=== PATIENT | female | born 1980 | race Hispanic/Latino ===

== ENCOUNTER 2017-07-21 12:28 | Emergency (ER) | payer SELFPAY ==
--- NOTE | 2017-07-21 12:46 | ED.PDOC ---
History of Present Illness - General Chief Complaint: Abdominal Pain Stated Complaint: abdominal pain Time Seen by Provider: 07/21/17 12:45 Information Source: patient Exam Limitations: no limitations - History of Present Illness Initial Comments: Julia Rodriguez 37 y/o female stated her right lower ribcage hurts whenever she coughs for the last 2 days .Stated had non productive cough ,no sob,no fever/ chills.Had hospitalization in the past for kidney infection right and drain tube placed in [facility].Had also been diagnosed with diabetes and was placed on insulin but could not afford medicine. Abdominal Pain Onset Location: RUQ Pain Radiation: no radiation Quality: dull, intermittent Timing/Duration: other - 2 dqays Improving Factors: nothing Worsening Factors: other - coughing Associated Symptoms: other - see hpi Review of Systems - Review of Systems Constitutional: States: no symptoms reported EENTM: States: no symptoms reported Respiratory: States: see HPI, cough Cardiology: States: no symptoms reported All other Systems: Reviewed and Negative, No Change from Baseline Past Medical History (General) - Patient Medical History Hx Seizures: No Hx Stroke: No Hx Dementia: No Hx Asthma: No Hx of COPD: No Hx Cardiac Disorders: No Hx Congestive Heart Failure: No Hx Pacemaker: No Hx Hypertension: No Hx Thyroid Disease: No Hx Diabetes: Yes Hx Gastroesophageal Reflux: No Hx Renal Disease: No Hx Cancer: No Hx of HIV: No Hx Hepatitis C: No Hx MRSA: No Surgical History: other - drain tube right kidney abscess - Vaccination History Hx Tetanus, Diphtheria Vaccination: No Hx Influenza Vaccination: No Hx Pneumococcal Vaccination: No - Social History Hx Tobacco Use: No Hx Chewing Tobacco Use: No Hx Alcohol Use: No Hx Substance Use: Yes Hx Substance Use Treatment: No Hx Depression: No Hx Physical Abuse: No Hx Emotional Abuse: No - Female History Hx Last Menstrual Period: 07/21/17 Patient : No - unknown Family Medical History - Family History Paternal Grandparents Hx Family Hypertension: Yes - paternal grandmother Hx Family Diabetes: Yes - paternal grandmother Paternal Hx Family;Other: Paternal aunts have high blood pressure and diabetes Sister Maternal Hx Family Cancer: Yes - Pt sister has cervical cancer Mother Family History: Unknown Living Status: Hx Family Cancer: Yes Hx Family;Other: Pt states mother had leukemia Physical Exam - Physical Exam General Appearance: Alert, Comfortable, No apparent distress Eyes, Ears, Nose, Throat Exam: normal ENT inspection, pharynx normal Neck: non-tender, full range of motion, supple Respiratory: chest non-tender, no respiratory distress, wheezing - mild Cardiovascular/Chest: normal peripheral pulses, regular rate, rhythm, no murmur Peripheral Pulses: No deficit Gastrointestinal/Abdominal: normal bowel sounds, non tender, soft Back Exam: normal inspection, no CVA tenderness Extremity: normal range of motion, non-tender Neurologic: alert, oriented x 3 Skin Exam: normal color, warm/dry Progress - Progress Progress: 07/21/17 12:59 Vital Signs 07/21/17 12:34 Temperature 96.4 F L Pulse Rate [ 102 H pulse ox] Respiratory 20 Rate Blood Pressure 128/83 [Left Arm] O2 Sat by Pulse 97 Oximetry - Results/Orders Results/Orders: 07/21/17 13:05 URINE CULTURE W/COLONY COUNT Stat 07/21/17 13:09 LACTIC ACID Stat Laboratory Results - last 24 hr 07/21/17 07/21/17 07/21/17 13:05 13:05 13:09 WBC 10.3 RBC 4.81 Hgb 13.8 Hct 40.6 MCV 84.3 MCH 28.7 MCHC 34.1 RDW 13.8 Plt Count 398 MPV 7.2 L Absolute Neuts (auto) 8.10 H Absolute Lymphs (auto) 1.40 Absolute Monos (auto) 0.50 Absolute Eos (auto) 0.20 Absolute Basos (auto) 0.10 Neutrophils % 79.1 H Lymphocytes % 13.5 L Monocytes % 4.7 Eosinophils % 2.0 Basophils % 0.7 Sodium Potassium Chloride Carbon Dioxide Anion Gap BUN Creatinine BUN/Creatinine Ratio Random Glucose Serum Osmolality Calcium Total Bilirubin AST ALT Alkaline Phosphatase Serum Total Protein Albumin Globulin Albumin/Globulin Ratio Urine Color Yellow Urine Appearance Cloudy Urine pH 6.0 Ur Specific Dutton 1.020 Urine Protein 100 H Urine Glucose (UA) Negative Urine Ketones Negative Urine Blood Large H Urine Nitrite Negative Urine Bilirubin Negative Urine Urobilinogen 0.2 Ur Leukocyte Esterase Large H Urine RBC Obscured by wbc's H Urine WBC Tntc H Ur Epithelial Cells 0 Urine Bacteria Obscured by wbc's H Urine HCG, Qual Negative 07/21/17 13:09 WBC RBC Hgb Hct MCV MCH MCHC RDW Plt Count MPV Absolute Neuts (auto) Absolute Lymphs (auto) Absolute Monos (auto) Absolute Eos (auto) Absolute Basos (auto) Neutrophils % Lymphocytes % Monocytes % Eosinophils % Basophils % Sodium 134 L Potassium 3.8 Chloride 97 L Carbon Dioxide 29 Anion Gap 11.8 L BUN 10 Creatinine 0.63 BUN/Creatinine Ratio 15.9 Random Glucose 266 H Serum Osmolality 276.6 Calcium 9.0 Total Bilirubin 0.3 AST 13 ALT 19 Alkaline Phosphatase 108 Serum Total Protein 8.2 Albumin 3.6 Globulin 4.6 H Albumin/Globulin Ratio 0.8 L Urine Color Urine Appearance Urine pH Ur Specific Dutton Urine Protein Urine Glucose (UA) Urine Ketones Urine Blood Urine Nitrite Urine Bilirubin Urine Urobilinogen Ur Leukocyte Esterase Urine RBC Urine WBC Ur Epithelial Cells Urine Bacteria Urine HCG, Qual - EKG/XRAY/CT XRAY: chest - no acute chest process/radiologis Departure - Departure Clinical Impression: Right upper quadrant abdominal pain URI (upper respiratory infection) Qualifiers: URI type: unspecified URI Qualified Code(s): J06.9 - Acute upper respiratory infection, unspecified Diabetes Qualifiers: Diabetes mellitus type: type 2 Diabetes mellitus complication status: without complication 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 Copy, Patient Portal Self Enrollment Instructions: Type 2 Diabetes, DI for Diabetes Type 2, Diet Soda Intake Linked to Increase Risk of Type 2 Diabetes, What to Eat if You Have Diabetes, DI for Urinary Tract Infection (UTI), Bladder Infection (Alternative Therapy) Prescriptions: Ciprofloxacin [Cipro] 250 mg PO Q12H 10 Days #20 tablet Metformin HCl 1,000 mg PO BID #60 tab Home Medications: Ambulatory Orders Vit W/ Ferrous Fumara [] 1 tab PO DAILY #30 tab 11/09/13 Nitrofurantoin Monohydrate Mac [Macrobid] 100 mg PO BID #20 cap 04/16/14 Tylenol 1 - 2 ea PO PRN PRN 04/16/14 Ferrous Sulfate [Feosol Tab] 325 mg PO QD #100 tab 04/18/14 Ibuprofen [Motrin Tab] 600 mg PO Q8H #20 tab 04/18/14 Vit W/ Ferrous Fumara [Vitafol-Ob] 1 tab PO DAILY #100 tab 04/18/14 Ciprofloxacin [Cipro] 250 mg PO Q12H 10 Days #20 tablet 07/21/17 Metformin HCl 1,000 mg PO BID #60 tab 07/21/17 Additional Instructions: Need to sign up with [facility]-Clinic to establish with primary MD for follow up [phone]/ [phone]
[2017-07-21] MEDS ORDERED: IPRATROPIUM/ALBUTEROL 3 ML VIAL NEB ONE (13:00)
[2017-07-21 13:07] VITALS: TEMP 96.4
[2017-07-21] MEDS ORDERED: MEROPENEM 1 GM in SODIUM CHL 0.9% 50ML MIN-BAG+ 50 ML IVPB ONE (13:39)
[2017-07-21] MEDS ORDERED: INSULIN, REG.(HUMAN) 100 U/ML VIAL SUBCU ONE (13:40)
[2017-07-21] MEDS ORDERED: SODIUM CHL 0.9% 50ML MIN-BAG+ 50 ML IVPB ONE (13:56)
[2017-07-21] MEDS ORDERED: MEROPENEM 1 GM VIAL IVPB ONE (13:57)
--- NOTE | 2017-07-21 14:01 | RAD ---
2 view chest INDICATION: Cough IMPRESSION: Normal heart size. Lungs are clear. No focal infiltrate. No acute chest process Electronically signed by: Kaushik Vega MD 07/21/2017 2:00 PM CDT
[2017-07-21 14:54] VITALS: BP 101/75; O2SAT 100
== END 2017-07-21 14:48 | disposition home or self-care (01) ==
LOC: ER 12:28
DX: J06.9 Acute upper respiratory infection, unspecified (principal); R10.11 Right upper quadrant pain; N39.0 Urinary tract infection, site not specified; E11.9 Type 2 diabetes mellitus without complications
CPT/HCPCS: 36415; 71046; 80053; 81001; 81025; 83605; 85025; 87086; 94640; J2185; J7050; J7620

== ENCOUNTER 2018-01-25 12:31 | Emergency (ER) | payer SELFPAY ==
[2018-01-25 12:51] VITALS: BP 116/57; TEMP 98.1
[2018-01-25] MEDS ORDERED: HYDROcodone 10MG/APAP 325MG 1 EA TAB PO ONE (13:04)
[2018-01-25] MEDS ORDERED: KETOROLAC TROMETHAMINE INJ 60 MG/2 ML VIAL IM ONE (13:04)
--- NOTE | 2018-01-25 13:07 | ED.PDOC ---
History of Present Illness - General Chief Complaint: Lower Extremity Injury Stated Complaint: right ankle injury Time Seen by Provider: 01/25/18 12:42 Source: patient Exam Limitations: no limitations - History of Present Illness Initial Comments: PT PRESENTS TO THE ED WITH COMPLAINT OF RIGHT ANKLE PAIN S/P FALL WHILE AT HOME. PT REPORTS BEING UNABLE TO BEAR WEIGHT ON ANKLE DUE TO PAIN. Occurred: just prior to arrival Pain - Lower Extremity: severe: Right Ankle Method of Injury: fell Improving Factors: immobilization Worsening Factors: movement Allergies/Adverse Reactions: Allergies NO KNOWN ALLERGY Allergy (Verified 07/21/17 12:46) Home Medications: Ambulatory Orders Acetaminophen W/ Codeine [Tylenol W/ CODEINE #3] 1 ea PO Q4HR PRN #24 01/25/18 Ibuprofen 800 mg PO Q8HR PRN #30 tab 01/25/18 Review of Systems - Review of Systems Constitutional: Denies: chills, fever Respiratory: Denies: cough, short of breath Cardiology: Denies: chest pain, palpitations Gastrointestinal/Abdominal: Denies: nausea, vomiting Musculoskeletal: States: joint pain, joint swelling Past Medical History (General) - Patient Medical History Hx Seizures: No Hx Stroke: No Hx Dementia: No Hx Asthma: No Hx of COPD: No Hx Cardiac Disorders: No Hx Congestive Heart Failure: No Hx Pacemaker: No Hx Hypertension: No Hx Thyroid Disease: No Hx Diabetes: Yes Hx Gastroesophageal Reflux: No Hx Renal Disease: No Hx Cancer: No Hx of HIV: No Hx Hepatitis C: No Hx MRSA: No Surgical History: no surgical history - Vaccination History Hx Tetanus, Diphtheria Vaccination: No Hx Influenza Vaccination: No Hx Pneumococcal Vaccination: No - Social History Hx Tobacco Use: No Hx Chewing Tobacco Use: No Hx Alcohol Use: No Hx Substance Use: Yes Hx Substance Use Treatment: No Hx Depression: No Hx Physical Abuse: No Hx Emotional Abuse: No - Female History Hx Last Menstrual Period: 07/21/17 Patient : No - unknown Expected Date of Delivery:: 05/27/14 Family Medical History - Family History Paternal Grandparents Hx Family Hypertension: Yes - paternal grandmother Hx Family Diabetes: Yes - paternal grandmother Paternal Hx Family;Other: Paternal aunts have high blood pressure and diabetes Sister Maternal Hx Family Cancer: Yes - Pt sister has cervical cancer Mother Family History: Unknown Living Status: Hx Family Cancer: Yes Hx Family;Other: Pt states mother had leukemia Physical Exam - Physical Exam General Appearance: Alert, Obvious distress, Well Developed, Well Groomed, Well Hydrated Thigh/Hip: normal inspection, non-tender, no evidence of injury Leg: normal inspection, non-tender, no evidence of injury Knee: normal inspection, non-tender, no evidence of injury Ankle: limited ROM, soft tissue tenderness - DIFFUSE, swelling - MODERATE TO SEVERE, NO TENTING Foot: normal inspection, non-tender, no evidence of injury Neuro/Tendon: normal sensation, normal motor functions Mental Status: alert, oriented x 3 Skin: normal color, warm/dry Progress - EKG/XRAY/CT XRAY: ankle - posteriorly displaced trimalleolar fx as per rad - Consult/PCP Time Called: 13:52 Consult/PCP: DR. CAZARES (ORTHOPEDICS) Consult Reason/Comments: CASE AND XRAY FINDINGS DISCUSSED. RECOMMENDS OUTPT F/ U. AT BEDSIDE. - Additional EKG/XRAY/Consults XRAY #2: ankle - NO INTERVAL CHANGE IN DISPLACEMENT OF TRIMALLEOLAR FX Procedures - Splinting Right Ankle Hand-Made Type: orthoglass Splint: sugar-tong Pre-Proc Neuro Vasc Exam: normal Post-Proc Neuro Vasc Exam: unchanged from pre-exam Progress: TOLERATED WELL Departure - Departure Clinical Impression: Trimalleolar fracture of right ankle Qualifiers: Encounter type: initial encounter Fracture type: closed Qualified Code(s): S82.851A - Displaced trimalleolar fracture of right lower leg, initial encounter for closed fracture Disposition: Discharge to Home or Self Care Condition: Fair Departure Forms: ED Discharge - Pt. Copy, Patient Portal Self Enrollment Instructions: Ankle Fracture (DC) Referrals: Link Cazares MD [Active Staff] - 1-2 Days Prescriptions: Acetaminophen W/ Codeine [Tylenol W/ CODEINE #3] 1 ea PO Q4HR PRN #24 PRN Reason: Pain Ibuprofen 800 mg PO Q8HR PRN #30 tab PRN Reason: Pain Home Medications: Ambulatory Orders Acetaminophen W/ Codeine [Tylenol W/ CODEINE #3] 1 ea PO Q4HR PRN #24 01/25/18 Ibuprofen 800 mg PO Q8HR PRN #30 tab 01/25/18
--- NOTE | 2018-01-25 13:25 | RAD ---
EXAM DESCRIPTION: Ankle,Right 3 Views CLINICAL HISTORY: 37 years Female, fall COMPARISON: None. TECHNIQUE: AP lateral and oblique right ankle. FINDINGS: Displaced fracture of the medial malleolus with medial shift of the tibia on the talus and widening of the medial gutter. Compression of the lateral gutter. Spiral fracture of the distal fibula with inferior fracture line at the level of the horizontal ankle mortise. Small fragment abutting the fibular fracture. Bone density inferior to the lateral malleolus does not appear acute. Posterior displaced tibial fracture. Subtalar joints are unremarkable. Hindfoot and tarsals appear grossly intact. IMPRESSION: Trimalleolar fracture of the right ankle with medial displacement of the tibia on the talus, widening of the medial gutter, and flattening of the lateral gutter. Small fracture fragment abutting the fibular fracture. Electronically signed by: Freddy Grant MD 01/25/2018 1:23 PM [facility]
--- NOTE | 2018-01-25 14:22 | RAD ---
EXAM DESCRIPTION: Ankle,Right 2 Views CLINICAL HISTORY: post reduction COMPARISON: January 25, 2018 at 1256 hours. IMPRESSION: 2 views of the right ankle again demonstrate trimalleolar fracture without significant change in positioning of the fracture fragments. There may be slightly more posterior displacement of the distal fracture fragment of the fibula fibula although the lateral projection is slightly oblique. There remains moderate widening of the medial ankle mortise similar to previous. Diffuse soft tissue swelling of the ankle is again seen. Electronically signed by: Armen He MD 01/25/2018 2:20 PM [facility]
[2018-01-25 15:02] VITALS: O2SAT 98
== END 2018-01-25 15:04 | disposition home or self-care (01) ==
LOC: ER 12:31
DX: S82.851A Displaced trimalleolar fracture of right lower leg, initial encounter for closed fracture (principal); E11.9 Type 2 diabetes mellitus without complications; W18.39XA Other fall on same level, initial encounter; Y92.000 Kitchen of unspecified non-institutional (private) residence as the place of occurrence of the external cause
CPT/HCPCS: 73600; 73610; J1885

== ENCOUNTER → 2018-02-01 | Outpatient (CLI) | payer SELFPAY ==
--- NOTE | 2018-02-02 10:12 | RAD ---
Procedure: XR RIGHT ANKLE 3 OR MORE VIEWS Exam Date: 02/01/2018 Ordering Provider: KAMRON WATSON Clinical Indication: CLOSED FX Comparison: 01/25/2018 Findings/impression: Fine bony details obscured by the overlying cast material. There is redemonstration of trimalleolar fracture with widening of the medial clear space which is increased compared to prior. Talar tilt also appears increased compared to prior. The fracture of the distal fibula is more displaced compared to prior with approximately one shaft width medial displacement of the proximal fibula. Diffuse soft tissue swelling. Electronically signed by: Yuri Gagnon MD 02/02/2018 10:10 AM [facility]
--- NOTE | 2018-02-02 10:12 | RAD ---
EXAM DESCRIPTION: Ankle,Right 3 Views CLINICAL HISTORY: 37 years, Female, FX COMPARISON: Previous study February 01, 2018 TECHNIQUE: AP/lateral/oblique of the right ankle FINDINGS: Medial malleolar avulsion fracture remains markedly displaced. A small fragment seen between the larger fragment in the donor site. Fragment is displaced laterally approximately 1.2 cm. Oblique fracture through the lateral malleolus is present extending into the ankle joint. There is approximately 1.2 cm lateral displacement of the major distal fracture fragment. Lateral view shows posterior displacement which appears less severe than on the previous study. This may be a preop film prior to internal fixation. Clinical correlation recommended. Talar dome is displaced laterally approximately 1.4 cm. IMPRESSION: Right ankle fracture dislocation as described. Electronically signed by: Lalito Robison MD 02/02/2018 10:11 AM [facility]
--- NOTE | 2018-02-02 10:15 | RAD ---
EXAM DESCRIPTION: Ankle,Right 3 Views CLINICAL HISTORY: 37 years, Female, FX,POST REDUCTION COMPARISON: None. TECHNIQUE: AP/lateral/oblique of the right ankle FINDINGS: Additional images are obtained labeled post reduction. Reduced degree of displacement of the medial and lateral malleolar fractures is seen. The gap at the medial malleolar fracture site is approximately 4 mm. The gap of the lateral malleolar fracture is approximately 2 mm on the AP view and 2.5 mm on the lateral view. An additional posterior malleolar fracture fragment is questioned on the lateral view not seen on previous studies. Talar dome appears normally situated relative to the distal tibial plafond. IMPRESSION: Reduced degree of displacement. Electronically signed by: Lalito Robison MD 02/02/2018 10:13 AM [facility]
== END ==
LOC: RAD 07:56
PROVIDERS: ATTEND Orthopaedic Surgery
DX: S82.91XD Unspecified fracture of right lower leg, subsequent encounter for closed fracture with routine healing (principal)

== ENCOUNTER → 2018-02-11 | Outpatient (CLI) | payer SELFPAY ==
--- NOTE | 2018-02-11 08:48 | RAD ---
EXAM DESCRIPTION: Ankle,Right 3 Views CLINICAL HISTORY: 37 years, Female, TRIMALLEOLAR FRACTURE RIGHT COMPARISON: February 01, 2018 TECHNIQUE: AP/lateral/oblique of the ankle FINDINGS: An encircling fiberglass cast surrounds the ankle. An oblique fracture of the distal fibula at and just above the ankle mortise with slight lateral displacement and a slightly distracted laterally displaced displaced fracture of the medial malleolus is evident. Widening of the ankle mortise particularly medially is noted on the AP view and oblique view. Lateral view demonstrates a minimally displaced posterior malleolar fracture as well. IMPRESSION: 1. Trimalleolar fracture of the ankle mortise with approximately 3 to 4 mm of lateral displacement of the distal fibula and the medial malleolar fragment with modest widening of the ankle mortise, unchanged from reduction views obtained with encircling fiberglass cast on previous examination. 2. Mildly displaced posterior malleolar fracture is unchanged on the lateral projection. Electronically signed by: Beau Plata MD 02/11/2018 8:46 AM [facility]
== END ==
LOC: RAD 07:59
PROVIDERS: ATTEND Orthopaedic Surgery
DX: S82.851D Displaced trimalleolar fracture of right lower leg, subsequent encounter for closed fracture with routine healing (principal)

== ENCOUNTER → 2018-02-22 | Outpatient (CLI) | payer SELFPAY ==
--- NOTE | 2018-02-21 10:21 | HP ---
CHIEF COMPLAINT: Ankle pain. HISTORY OF PRESENT ILLNESS: Julia is a patient that we have been seeing for about 2 weeks for an ankle fracture. Her fracture was a bimalleolar fracture in nature and would best be served by surgical intervention. My office has gone to great lengths to assist her with obtaining financial assistance in order to proceed with surgery, however she has not done what is needed despite explicit instructions. She has missed or been late for at least 7 appointments in clinic, inclusive of the very initial follow-up from the ER. She admittedly does not answer her phone. Finally, she has and has received approval so we can proceed with fixation of her ankle. After discussing the risks, benefits and alternatives to the patient has given informed consent. PAST SURGICAL HISTORY: None. MEDICATIONS: 1. Ibuprofen. 2. Tylenol with codeine. 3. Antibiotic for a urinary tract infection. ALLERGIES: NO KNOWN DRUG ALLERGIES. CODE STATUS: Full code. IMMUNIZATIONS: Up to date. FAMILY HISTORY: None pertinent to today's complaint. SOCIAL HISTORY: The patient does not drink alcohol, smoke or use any illicit drugs. REVIEW OF SYSTEMS: Negative except as indicated in the History of Present Illness. PHYSICAL EXAMINATION: VITAL SIGNS: Blood pressure 152/65. Pulse 82. Height 5'6". Weight 155 pounds. MENTAL STATUS: The patient is awake, alert, and is able to give a good history and participate in the physical. The patient is oriented to person, place and time. SKIN: Normal tone and turgor. MUSCULOSKELETAL: She has some swelling today, but does have skin that appears to be operable. She does have an ulcer from her fracture blister on the anteromedial aspect that is superficial and clean and doesn't have drainage or erythema. She has intact sensation and the extremity is warm and well perfused and there is not any gross malalignment. IMAGING: X-rays show displaced bimalleolar ankle fracture. ASSESSMENT: 1. Ankle fracture. PLAN: The plan at this point is open reduction and internal fixation. We have discussed the risks, benefits, and alternatives to that and the patient has given informed consent. #[id number] [facility]
[~2018-02-22] MED LIST: LACTATED RINGERS 1,000 ML ONE; SODIUM CHL 0.9% 100ML MINI-BAG 100 ML IVPB ONE; ceFAZolin SODIUM 1 GM VIAL ONE
== END ==
LOC: AMB 05:44 → EDSTATUS 10:30
PROVIDERS: ATTEND Orthopaedic Surgery
DX: S82.851D Displaced trimalleolar fracture of right lower leg, subsequent encounter for closed fracture with routine healing (principal); Z53.8 Procedure and treatment not carried out for other reasons
CPT/HCPCS: 36415; 36416; 80048; 80307; 80323; 81001; 82948; 85025; 87070; 87086; J0690; J7050; J7120

== ENCOUNTER → 2018-03-04 | Outpatient (CLI) | payer SELFPAY ==
--- NOTE | 2018-03-04 10:37 | RAD ---
EXAM DESCRIPTION: Ankle,Right 3 x-ray Views CLINICAL HISTORY: 37 years, Female, TRIMALLEOLAR FACTURE RIGHT COMPARISON: Previous study February 11, 2018 TECHNIQUE: AP/lateral/oblique casted views of the right ankle FINDINGS: Casted views are obtained showing displaced trimalleolar fracture of the right ankle. Talar dome is displaced laterally. There is lateral angulation of the distal fibular fragment 36 degrees. The medial malleolar fragment is displaced laterally approximately 1.2 cm. Talar dome is malaligned relative to the tibial plafond. Compared to the previous study, alignment has worsened. IMPRESSION: Displaced trimalleolar fracture of the right ankle with increased malalignment since previous study. Electronically signed by: Lalito Robison MD 03/04/2018 10:36 AM [facility]
--- NOTE | 2018-03-04 14:46 | RAD ---
EXAM DESCRIPTION: Ankle,Right 3 Views CLINICAL HISTORY: 37 years Female, POST REDUCTION COMPARISON: Ankle radiographs dated March 04, 2018 at 9:53 AM. TECHNIQUE: AP, oblique and lateral radiographs. FINDINGS: The bony details are obscured by the overlying cast. Again noted is displaced trimalleolar fracture of the right ankle with displacement of the fracture fragments. No significant interval change since prior radiograph. No abnormally displaced laterally. The ankle mortise is disrupted with lateral displacement of the talar dome. Again noted is angulation of the distal fibular fragment with overriding of the fracture fragments. Widening of the medial clear space is noted measuring up to 8 mm. IMPRESSION: 1. Stable trimalleolar fracture with no significant interval change since prior radiograph from same day at 9:53 AM. The bony details obscured by the overlying cast. 2. The ankle mortise is disrupted with lateral displacement of the talar dome. Widening of the medial clear space measuring up to 8 mm. Electronically signed by: Luke Sethi MD 03/04/2018 2:45 PM [facility]
--- NOTE | 2018-03-04 14:50 | RAD ---
EXAM DESCRIPTION: Ankle,Right 3 Views CLINICAL HISTORY: 37 years Female, TRIMALLEOLAR FX POST REDUCTION COMPARISON: Radiographs of the right ankle dated March 04, 2018 at 9:53 PM. TECHNIQUE: AP, oblique and lateral radiographs. FINDINGS: The bony details are obscured by the overlying cast. Again noted is a trimalleolar right ankle fracture with displacement of the fracture fragments. Persistent lateral angulation of the distal fibular fragment along with overriding of fracture fragments noted. Slight interval improvement of the collateral displacement of the talar dome. Slight interval improvement of the medial clear space widening previously measuring 1.5 cm no measuring 1.4 cm. IMPRESSION: 1. Persistent trimalleolar fracture of the right ankle with disruption of the ankle mortise, lateral displacement of the talar dome with widening of the medial clear space. Slight interval improvement of the widening of the medial clear space noted status post reduction in comparison to the recent prior radiograph dated March 04, 2018 at 9:53 AM. Electronically signed by: Luke Sethi MD 03/04/2018 2:49 PM [facility]
== END ==
LOC: RAD 09:55
PROVIDERS: ATTEND Orthopaedic Surgery
DX: S82.851D Displaced trimalleolar fracture of right lower leg, subsequent encounter for closed fracture with routine healing (principal)

== ENCOUNTER → 2018-03-21 | Outpatient (CLI) | payer SELFPAY ==
--- NOTE | 2018-03-21 08:22 | RAD ---
EXAM DESCRIPTION: Ankle,Left 3 Views CLINICAL HISTORY: 37 years, Female, S82.851 COMPARISON: Previous study March 04, 2018 TECHNIQUE: AP/lateral/oblique of the left ankle FINDINGS: Casted views are obtained. Fracture dislocation of left ankle is seen. Talus is displaced laterally. Oblique fracture through the lateral malleolus extends into the ankle joint. Transverse fracture of the medial malleolus is seen with lateral displacement of malleolar fracture fragments. Talus and calcaneus are not well seen on the lateral view but appears intact on the previous study. No midfoot malalignment. IMPRESSION: Fracture dislocation of the left ankle with degree of displacement similar to previous study. Electronically signed by: Lalito Robison MD 03/21/2018 8:21 AM [facility]
== END ==
LOC: RAD 08:03
PROVIDERS: ATTEND Orthopaedic Surgery
DX: S82.851D Displaced trimalleolar fracture of right lower leg, subsequent encounter for closed fracture with routine healing (principal)

== ENCOUNTER 2019-06-10 13:15 | Emergency (ER) | payer SELFPAY ==
[2019-06-10] MEDS ORDERED: CEPHALEXIN MONOHYDRATE 250 MG CAP PO ONE (14:51)
--- NOTE | 2019-06-10 15:06 | ED.PDOC ---
History of Present Illness - General Chief Complaint: Problem Stated Complaint: Frequent urination Time Seen by Provider: 06/10/19 13:27 Source: patient Exam Limitations: no limitations - History of Present Illness Initial Comments: This is a 38-year-old female with history of type 2 diabetes presenting to the emergency room with 2 days of urinary frequency and mild dysuria. She denies any fever, abdominal pain, back pain, vomiting. She checked her blood sugar this morning, 160. She is taking metformin. She states she has history of UTI, states this is similar. Timing/Duration: constant Quality: mild Radiation: none Sexual intercourse history: not active Improving Factors: nothing Worsening Factors: nothing Associated Symptoms: dysuria Allergies/Adverse Reactions: Allergies NO KNOWN ALLERGY Allergy (Verified 02/17/18 10:42) Home Medications: Ambulatory Orders Cephalexin Monohydrate [Keflex] 500 mg PO Q12H 5 Days cap 06/10/19 Metformin HCl [Metformin Hydrochloride] 500 mg PO BID 06/10/19 Phenazopyridine HCl [Pyridium] 0 mg PO Q8H 2 Days tab 06/10/19 Review of Systems - Review of Systems Constitutional: Denies: chills, fever EENTM: Denies: blurred vision Respiratory: Denies: cough, short of breath Cardiology: Denies: chest pain, edema Gastrointestinal/Abdominal: Denies: abdominal pain, diarrhea, nausea, vomiting Genitourinary: States: dysuria. Denies: discharge, frequency, pain Musculoskeletal: Denies: back pain, muscle pain, neck pain Skin: Denies: lesions, rash Neurological: States: no symptoms reported Endocrine: States: increased urine. Denies: increased thirst Hematologic/Lymphatic: States: no symptoms reported Past Medical History (General) - Patient Medical History Hx Seizures: No Hx Stroke: No Hx Dementia: No Hx Asthma: No Hx of COPD: No Hx Cardiac Disorders: No Hx Congestive Heart Failure: No Hx Pacemaker: No Hx Hypertension: No Hx Thyroid Disease: No Hx Diabetes: Yes Hx Gastroesophageal Reflux: No Hx Renal Disease: - stents in kidneys Hx Cancer: No Hx of HIV: No Hx Hepatitis C: No Hx MRSA: No Surgical History: other - Vaccination History Hx Tetanus, Diphtheria Vaccination: No Hx Influenza Vaccination: No Hx Pneumococcal Vaccination: No - Social History Hx Tobacco Use: No Hx Chewing Tobacco Use: No Hx Alcohol Use: No Hx Substance Use: Yes Hx Substance Use Treatment: No Hx Depression: No Hx Physical Abuse: No Hx Emotional Abuse: No - Female History Patient is a Female of Child Bearing Age (10 -59 yrs old): Yes Hx Last Menstrual Period: 07/21/17 Patient : No - unknown Expected Date of Delivery:: 05/27/14 Family Medical History - Family History Paternal Grandparents Hx Family Hypertension: Yes - paternal grandmother Hx Family Diabetes: Yes - paternal grandmother Paternal Hx Family;Other: Paternal aunts have high blood pressure and diabetes Sister Maternal Hx Family Cancer: Yes - Pt sister has cervical cancer Mother Family History: Unknown Living Status: Hx Family Cancer: Yes Hx Family;Other: Pt states mother had leukemia Physical Exam - Physical Exam General Appearance: Alert, Comfortable, Obese Eyes, Ears, Nose, Throat Exam: normal ENT inspection, TMs normal, pharynx normal Neck: full range of motion, supple, normal inspection Cardiovascular/Respiratory: regular rate, rhythm, no M/R/G, normal peripheral pulses, no JVD, normal breath sounds, no respiratory distress Gastrointestinal/Abdominal: normal bowel sounds, non tender, soft Rectal Exam: deferred Back Exam: normal inspection, no CVA tenderness, no vertebral tenderness Extremity: non-tender, normal inspection, no pedal edema, other - Left ankle in Ortho boot Neurologic: no motor/sensory deficits, alert, normal mood/affect Skin Exam: normal color, warm/dry Progress - Progress Progress: 06/10/19 15:06 There was a delay in obtaining UA results. Urinalysis machine malfunctioned and had to be restarted. This is explained to the patient. Once results obtained, I explained the results. Recommended push fluids, check blood sugars regularly. Strict warnings given to return the emergency room for abdominal pain, back pain, fever, intractable vomiting, or any other concerns. - Results/Orders Results/Orders: Laboratory Tests 06/10/19 13:28 Urine Color Yellow Urine Appearance Cloudy H Urine pH 8.5 H Ur Specific [place] 1.020 Urine Protein >=300 H Urine Glucose (UA) Negative Urine Ketones Negative Urine Blood Moderate H Urine Nitrite Positive H Urine Bilirubin Negative Urine Urobilinogen 0.2 Ur Leukocyte Esterase Large H Urine RBC Obscured by wbc's H Urine WBC Tntc H Ur Epithelial Cells 0 Urine Bacteria Obscured by wbc's H Departure - Departure Clinical Impression: Cystitis Time of Disposition: 14:55 Disposition: Discharge to Home or Self Care Condition: Good Departure Forms: ED Discharge - Pt. Copy, Patient Portal Self Enrollment Instructions: DI for Urinary Tract Infection (UTI) Prescriptions: Cephalexin Monohydrate [Keflex] 500 mg PO Q12H 5 Days cap Phenazopyridine HCl [Pyridium] 0 mg PO Q8H 2 Days tab Home Medications: Ambulatory Orders Cephalexin Monohydrate [Keflex] 500 mg PO Q12H 5 Days cap 06/10/19 Metformin HCl [Metformin Hydrochloride] 500 mg PO BID 06/10/19 Phenazopyridine HCl [Pyridium] 0 mg PO Q8H 2 Days tab 06/10/19 Additional Instructions: Drink plenty of fluids. Return to the emergency room for fevers, abdominal pain, intractable vomiting, or any other concerns.
[2019-06-10 15:14] VITALS: BP 114/67; TEMP 97.8; O2SAT 97
== END 2019-06-10 15:13 | disposition home or self-care (01) ==
LOC: ER 13:15
DX: N30.90 Cystitis, unspecified without hematuria (principal); E11.9 Type 2 diabetes mellitus without complications; Z79.84 Long term (current) use of oral hypoglycemic drugs

== ENCOUNTER 2019-06-30 10:41 | Emergency (ER) | payer SELFPAY ==
--- NOTE | 2019-06-30 10:45 | ED.PDOC ---
History of Present Illness - General Time Seen by Provider: 06/30/19 10:43 Source: patient - History of Present Illness Initial Comments: 38 yo female with PMH of DM2 who presents with cc of urinary frequency. Reports ongoing for past 3 days, worsening, currently urinating once every 30 mins approximately. Also reports moderate constant burning urinary tract discomfort with urination only, none at rest. No meds taken for relief. States sx's feel like typical UTI sx's - states has had 2-3 UTI's now in the past few months. Was seen here 3 weeks ago with same sx's and dx'd with UTI and placed on Keflex - states sx's resolved rapidly with treatment but have now returned. Denies any fevers, chills, abd pain, back pain, n/v/d. LMP was 1 month ago. Reports blood sugar checks have been well-controlled recently, checks twice daily. Establishing care with Dr. Ray in [place] next week. Allergies/Adverse Reactions: Allergies NO KNOWN ALLERGY Allergy (Verified 06/30/19 11:03) Home Medications: Ambulatory Orders Metformin HCl [Metformin Hydrochloride] 500 mg PO BID 06/10/19 Cephalexin Monohydrate [Keflex] 500 mg PO BID 7 Days #14 cap 06/30/19 Review of Systems - Review of Systems Review of Systems: 06/30/19 11:01 as per HPI All other Systems: Reviewed and Negative Past Medical History (General) - Patient Medical History Hx Seizures: No Hx Stroke: No Hx Dementia: No Hx Asthma: No Hx of COPD: No Hx Cardiac Disorders: No Hx Congestive Heart Failure: No Hx Pacemaker: No Hx Hypertension: No Hx Thyroid Disease: No Hx Diabetes: Yes Hx Gastroesophageal Reflux: No Hx Renal Disease: - stents in kidneys Hx Cancer: No Hx of HIV: No Hx Hepatitis C: No Hx MRSA: No - Vaccination History Hx Tetanus, Diphtheria Vaccination: No Hx Influenza Vaccination: No Hx Pneumococcal Vaccination: No - Social History Hx Tobacco Use: No Hx Chewing Tobacco Use: No Hx Alcohol Use: No Hx Substance Use: Yes Hx Substance Use Treatment: No Hx Depression: No Hx Physical Abuse: No Hx Emotional Abuse: No - Female History Hx Last Menstrual Period: 07/21/17 Patient : No - unknown Expected Date of Delivery:: 05/27/14 Family Medical History - Family History Paternal Grandparents Hx Family Hypertension: Yes - paternal grandmother Hx Family Diabetes: Yes - paternal grandmother Paternal Hx Family;Other: Paternal aunts have high blood pressure and diabetes Sister Maternal Hx Family Cancer: Yes - Pt sister has cervical cancer Mother Family History: Unknown Living Status: Hx Family Cancer: Yes Hx Family;Other: Pt states mother had leukemia Physical Exam - Physical Exam General Appearance: Alert, Comfortable, No apparent distress Eye Exam: bilateral normal Ears, Nose, Throat: normal ENT inspection, normal pharynx Neck: non-tender, full range of motion, supple, normal inspection Respiratory: lungs clear, normal breath sounds, no respiratory distress, no accessory muscle use Cardiovascular/Chest: normal peripheral pulses, regular rate, rhythm, no edema, no gallop, no JVD, no murmur Peripheral Pulses: radial,right: 2+, radial,left: 2+ Gastrointestinal/Abdominal: normal bowel sounds, non tender, soft, no organomegaly Back Exam: normal inspection, no CVA tenderness, no vertebral tenderness Extremity: normal range of motion, non-tender, normal inspection, no pedal edema, no calf tenderness Neurologic: no motor/sensory deficits, alert, normal mood/affect, oriented x 3 Skin Exam: normal color, warm/dry Progress - Progress Progress: 06/30/19 11:02 Dysuria, frequency -suspect UTI. Consider also , interstitial cystitis, hyperglycemia, other -pt stable, afebrile, NAD, abdominal exam benign - no emergent etiologies apparent -obtain UA & urine hcg 06/30/19 11:24 -UA reveals 2+ bact, TNTC WBC, moderate RBCs, +nitrite, large leuk esterase - c/w UTI -urine hcg negative -Discussed dx of UTI - will treat with Rocephin 1 g IM here in ED. Send home on Keflex 500 mg PO BID x7 days, first dose raúl morning. -dc home in good condition, f/u closely with PCP. Advised of good diabetic control and other measures to prevent UTI. Eulalio Lozano MD Billing #[id number] 06/30/19 11:04 Urine Culture Stat Laboratory Results - last 24 hr 06/30/19 06/30/19 11:04 11:04 Urine Color Yellow Urine Appearance Cloudy Urine pH 7.5 Ur Specific [place] 1.025 Urine Protein 100 H Urine Glucose (UA) Negative Urine Ketones Negative Urine Blood Moderate H Urine Nitrite Positive H Urine Bilirubin Negative Urine Urobilinogen 0.2 Ur Leukocyte Esterase Large H Urine RBC Obscured by wbc's H Urine WBC Tntc H Ur Epithelial Cells Obscured by wbc's Urine Bacteria 2+ H Urine HCG, Qual Negative Departure - Departure Clinical Impression: Urinary tract infection Qualifiers: Urinary tract infection type: acute cystitis Hematuria presence: without hematuria Qualified Code(s): N30.00 - Acute cystitis without hematuria Time of Disposition: 11:24 Disposition: Discharge to Home or Self Care Condition: Good Instructions: DI for Urinary Tract Infection (UTI) Diet: diabetic diet Activity: increase activity as tolerated Prescriptions: Cephalexin Monohydrate [Keflex] 500 mg PO BID 7 Days #14 cap Home Medications: Ambulatory Orders Metformin HCl [Metformin Hydrochloride] 500 mg PO BID 06/10/19 Cephalexin Monohydrate [Keflex] 500 mg PO BID 7 Days #14 cap 06/30/19 Additional Instructions: Take the antibiotics as directed and finish the full course even if well. Continue taking ibuprofen and Tylenol as needed for pain. Remain well-hydrated. Continue to diet well and maintain good control of your blood sugars to help prevent future UTI's. Return if you develop fevers, abdominal pain, back pain, or other concerning symptoms. Follow up with your primary care doctor in 1-2 weeks for further evaluation.
[2019-06-30] MEDS ORDERED: cefTRIAXone SODIUM 1 GM VIAL IM ONE (11:19)
[2019-06-30] MEDS ORDERED: LIDOCAINE 1% 10 ML VIAL INJ ONE (11:22)
[2019-06-30 11:43] VITALS: BP 142/93; TEMP 97.6; O2SAT 99
== END 2019-06-30 11:43 | disposition home or self-care (01) ==
LOC: ER 10:41
DX: N30.00 Acute cystitis without hematuria (principal); E11.9 Type 2 diabetes mellitus without complications; Z79.899 Other long term (current) drug therapy; Z87.440 Personal history of urinary (tract) infections
CPT/HCPCS: 81001; 81025; 87086; J0696

== ENCOUNTER 2019-07-26 22:38 | Emergency (ER) | payer SELFPAY ==
--- NOTE | 2019-07-26 22:47 | ED.PDOC ---
History of Present Illness - General Chief Complaint: Problem Time Seen by Provider: 07/26/19 22:44 Additional Information: With lower extremity weakness this is a 39-year-old female, presents to the ER because of a 2-day history of urinary frequency and dysuria, patient stated that she was seen here couple months ago with similar symptoms and she was diagnosed with a urinary tract infection, patient has a past medical history of diabetes she is a former smoker only surgery was for back surgery no fever no chills no recent travel no sick contacts no coughing During initial evaluation patient has not been any stress - History of Present Illness Timing/Duration: other - 2 days Severity: mild Improving Factors: nothing Worsening Factors: nothing Associated Symptoms: denies symptoms Allergies/Adverse Reactions: Allergies NO KNOWN ALLERGY Allergy (Verified 07/26/19 22:48) Home Medications: Ambulatory Orders Metformin HCl [Metformin Hydrochloride] 500 mg PO BID 06/10/19 Cephalexin Monohydrate [Keflex] 500 mg PO BID 7 Days #14 cap 06/30/19 Cephalexin Monohydrate [Keflex] 500 mg PO BID #14 cap 07/26/19 Review of Systems - Review of Systems Constitutional: States: no symptoms reported EENTM: States: no symptoms reported Respiratory: States: no symptoms reported Cardiology: States: no symptoms reported Gastrointestinal/Abdominal: States: no symptoms reported Genitourinary: States: dysuria, frequency Musculoskeletal: States: no symptoms reported Skin: States: no symptoms reported Neurological: States: no symptoms reported Endocrine: States: no symptoms reported Hematologic/Lymphatic: States: no symptoms reported Past Medical History (General) - Patient Medical History Hx Seizures: No Hx Stroke: No Hx Dementia: No Hx Asthma: No Hx of COPD: No Hx Cardiac Disorders: No Hx Congestive Heart Failure: No Hx Pacemaker: No Hx Hypertension: No Hx Thyroid Disease: No Hx Diabetes: Yes Hx Gastroesophageal Reflux: No Hx Renal Disease: - stents in kidneys Hx Cancer: No Hx of HIV: No Hx Hepatitis C: No Hx MRSA: No - Vaccination History Hx Tetanus, Diphtheria Vaccination: No Hx Influenza Vaccination: No Hx Pneumococcal Vaccination: No - Social History Hx Tobacco Use: No Hx Chewing Tobacco Use: No Hx Alcohol Use: No Hx Substance Use: Yes Hx Substance Use Treatment: No Hx Depression: No Hx Physical Abuse: No Hx Emotional Abuse: No - Female History Hx Last Menstrual Period: 07/21/17 Patient : No - unknown Expected Date of Delivery:: 05/27/14 Family Medical History - Family History Paternal Grandparents Hx Family Hypertension: Yes - paternal grandmother Hx Family Diabetes: Yes - paternal grandmother Paternal Hx Family;Other: Paternal aunts have high blood pressure and diabetes Sister Maternal Hx Family Cancer: Yes - Pt sister has cervical cancer Mother Family History: Unknown Living Status: Hx Family Cancer: Yes Hx Family;Other: Pt states mother had leukemia Physical Exam - Physical Exam General Appearance: Alert, Well Developed, Well Groomed, Well Hydrated, Well Nourished Eye Exam: bilateral normal Ears, Nose, Throat: hearing grossly normal Neck: non-tender, full range of motion, supple, normal inspection Respiratory: chest non-tender, lungs clear, normal breath sounds, no respiratory distress, no accessory muscle use Cardiovascular/Chest: normal peripheral pulses, regular rate, rhythm, no edema, no gallop, no JVD, no murmur Gastrointestinal/Abdominal: normal bowel sounds, soft, no organomegaly, no pulsatile mass, abnormal bowel sounds Extremity: normal range of motion, non-tender, normal inspection, no pedal edema 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 Urine is consistent with urinary tract infection, so I will give the patient a dose of IM Rocephin. Patient will be charged home with Keflex Please return to the ER immediately any fever chills chest pain shortness of breath nausea vomiting unable to holding fluids down abdominal pain right lower quadrant pain blood in the urine blood in the stools unwanted weight of decreased oral intake or any other concerns Departure - Departure Clinical Impression: Urinary tract infection Qualifiers: Urinary tract infection type: site unspecified Hematuria presence: without hematuria Qualified Code(s): N39.0 - Urinary tract infection, site not specified Disposition: Discharge to Home or Self Care Condition: Fair Departure Forms: ED Discharge - Pt. Copy, Patient Portal Self Enrollment Instructions: DI for Urinary Tract Infection (UTI) Diet: diabetic diet Prescriptions: Cephalexin Monohydrate [Keflex] 500 mg PO BID #14 cap Home Medications: Ambulatory Orders Metformin HCl [Metformin Hydrochloride] 500 mg PO BID 06/10/19 Cephalexin Monohydrate [Keflex] 500 mg PO BID 7 Days #14 cap 06/30/19 Cephalexin Monohydrate [Keflex] 500 mg PO BID #14 cap 07/26/19 Additional Instructions: silvano return to the ER immediately any fever chills chest pain shortness of breath nausea vomiting unable to holding fluids down abdominal pain right lower quadrant pain blood in the urine blood in the stools unwanted weight of decreased oral intake or any other concerns
[2019-07-26 22:51] VITALS: TEMP 97.2; O2SAT 99
[2019-07-26] MEDS ORDERED: cefTRIAXone SODIUM 1 GM VIAL IM ONE (23:08)
[2019-07-26] MEDS ORDERED: LIDOCAINE 1% 2 ML VIAL INJ ONE (23:10)
[2019-07-26 23:21] VITALS: BP 138/89
== END 2019-07-26 23:18 | disposition home or self-care (01) ==
LOC: ER 22:38
DX: N39.0 Urinary tract infection, site not specified (principal); E11.9 Type 2 diabetes mellitus without complications; Z79.899 Other long term (current) drug therapy; Z87.891 Personal history of nicotine dependence
CPT/HCPCS: 81001; 87086; J0696

== ENCOUNTER 2019-08-24 03:21 | Emergency (ER) | payer SELFPAY ==
[2019-08-24 03:38] VITALS: TEMP 98.4; O2SAT 100
--- NOTE | 2019-08-24 04:00 | ED.PDOC ---
History of Present Illness - General Chief Complaint: Problem Stated Complaint: burning with urination Time Seen by Provider: 08/24/19 03:22 - History of Present Illness Initial Comments: 39 y/o with dysuria for one day. no f/c or back pain. Denies vaginal d/c. She has DM and takes metformin Allergies/Adverse Reactions: Allergies NO KNOWN ALLERGY Allergy (Verified 08/24/19 03:38) Home Medications: Ambulatory Orders Metformin HCl [Metformin Hydrochloride] 500 mg PO BID 06/10/19 Cephalexin Monohydrate [Keflex] 500 mg PO QID 7 Days #28 cap 08/24/19 Review of Systems - Review of Systems Constitutional: States: no symptoms reported EENTM: States: no symptoms reported Respiratory: States: no symptoms reported Cardiology: States: no symptoms reported Gastrointestinal/Abdominal: States: no symptoms reported Genitourinary: States: dysuria, frequency, pain Musculoskeletal: States: no symptoms reported Skin: States: no symptoms reported Neurological: States: no symptoms reported Past Medical History (General) - Patient Medical History Hx Seizures: No Hx Stroke: No Hx Dementia: No Hx Asthma: No Hx of COPD: No Hx Cardiac Disorders: No Hx Congestive Heart Failure: No Hx Pacemaker: No Hx Hypertension: No Hx Thyroid Disease: No Hx Diabetes: Yes Hx Gastroesophageal Reflux: No Hx Renal Disease: Yes - Hx stents in kidneys Hx Cancer: No Hx of HIV: No Hx Hepatitis C: No Hx MRSA: No - Vaccination History Hx Tetanus, Diphtheria Vaccination: No Hx Influenza Vaccination: No Hx Pneumococcal Vaccination: No - Social History Hx Tobacco Use: No Hx Chewing Tobacco Use: No Hx Alcohol Use: No Hx Substance Use: Yes Hx Substance Use Treatment: No Hx Depression: No Hx Physical Abuse: No Hx Emotional Abuse: No - Female History Hx Last Menstrual Period: 07/21/17 Patient : No - unknown Expected Date of Delivery:: 05/27/14 Family Medical History - Family History Paternal Grandparents Hx Family Hypertension: Yes - paternal grandmother Hx Family Diabetes: Yes - paternal grandmother Paternal Hx Family;Other: Paternal aunts have high blood pressure and diabetes Sister Maternal Hx Family Cancer: Yes - Pt sister has cervical cancer Mother Family History: Unknown Living Status: Hx Family Cancer: Yes Hx Family;Other: Pt states mother had leukemia Physical Exam - Physical Exam General Appearance: Alert Eyes, Ears, Nose, Throat Exam: normal ENT inspection Neck: non-tender, full range of motion, supple, normal inspection Cardiovascular/Respiratory: no respiratory distress Gastrointestinal/Abdominal: normal bowel sounds, non tender, soft Back Exam: no CVA tenderness Extremity: normal range of motion Skin Exam: normal color Departure - Departure Clinical Impression: UTI (urinary tract infection) Qualifiers: Urinary tract infection type: acute cystitis Hematuria presence: with hematuria Qualified Code(s): N30.01 - Acute cystitis with hematuria Time of Disposition: 04:09 Disposition: Discharge to Home or Self Care Condition: Good Departure Forms: ED Discharge - Pt. Copy, Patient Portal Self Enrollment Instructions: DI for Urinary Tract Infection (UTI) Prescriptions: Cephalexin Monohydrate [Keflex] 500 mg PO QID 7 Days #28 cap Home Medications: Ambulatory Orders Metformin HCl [Metformin Hydrochloride] 500 mg PO BID 06/10/19 Cephalexin Monohydrate [Keflex] 500 mg PO QID 7 Days #28 cap 08/24/19
[2019-08-24] MEDS: CEPHALEXIN MONOHYDRATE 500 MG CAP PO ONE (04:12)
[2019-08-24 04:49] VITALS: BP 108/85
== END 2019-08-24 04:37 | disposition home or self-care (01) ==
LOC: ER 03:21
DX: N30.01 Acute cystitis with hematuria (principal)

== ENCOUNTER 2019-09-20 10:21 | Emergency (ER) | payer SELFPAY ==
[2019-09-20 10:52] VITALS: O2SAT 98
--- NOTE | 2019-09-20 10:58 | ED.PDOC ---
History of Present Illness - General Chief Complaint: Problem Stated Complaint: burning during urination Time Seen by Provider: 09/20/19 10:57 Source: patient Exam Limitations: no limitations - History of Present Illness Initial Comments: 39 yo otherwise health F who presents for burning during urination onset two to three days ago, associated urinary frequency. Recent UTI, was treated with Keflex, completed course but now again with sx. Denies f/c, back pain, flank pain, abd pain, vag discharge/odor/itching. States only one sexual partner and no concerns for STD. Allergies/Adverse Reactions: Allergies NO KNOWN ALLERGY Allergy (Verified 08/24/19 03:38) Home Medications: Ambulatory Orders Metformin HCl [Metformin Hydrochloride] 500 mg PO BID 06/10/19 Cephalexin Monohydrate [Keflex] 500 mg PO QID 7 Days #28 cap 08/24/19 Levofloxacin [Levaquin] 750 mg PO DAILY 10 Days #10 tablet 09/20/19 Review of Systems - Review of Systems Constitutional: Denies: chills, fever Cardiology: States: no symptoms reported Gastrointestinal/Abdominal: Denies: abdominal pain, constipation, diarrhea, nausea, vomiting Genitourinary: States: dysuria, frequency. Denies: discharge, hematuria Musculoskeletal: Denies: back pain Skin: Denies: lesions, rash Past Medical History (General) - Patient Medical History Hx Seizures: No Hx Stroke: No Hx Dementia: No Hx Asthma: No Hx of COPD: No Hx Cardiac Disorders: No Hx Congestive Heart Failure: No Hx Pacemaker: No Hx Hypertension: No Hx Thyroid Disease: No Hx Diabetes: Yes - type II Hx Gastroesophageal Reflux: No Hx Renal Disease: Yes - Hx stents in kidneys Hx Cancer: No Hx of HIV: No Hx Hepatitis C: No Hx MRSA: No - Vaccination History Hx Tetanus, Diphtheria Vaccination: No Hx Influenza Vaccination: No Hx Pneumococcal Vaccination: No - Social History Hx Tobacco Use: No Hx Chewing Tobacco Use: No Hx Alcohol Use: No Hx Substance Use: Yes Hx Substance Use Treatment: No Hx Depression: No Hx Physical Abuse: No Hx Emotional Abuse: No - Activities of Daily Living Hospice Agency (if applicable):: None - Female History Hx Last Menstrual Period: 07/21/17 Patient : No Expected Date of Delivery:: 05/27/14 Family Medical History - Family History Mother Family History: Unknown Living Status: Hx Family Cancer: Yes Hx Family;Other: Pt states mother had leukemia Paternal Hx Family;Other: Paternal aunts have high blood pressure and diabetes Paternal Grandparents Hx Family Hypertension: Yes - paternal grandmother Hx Family Diabetes: Yes - paternal grandmother Sister Maternal Family History: Unknown Hx Family Cancer: Yes - Pt sister has cervical cancer Physical Exam - Physical Exam General Appearance: Alert, Comfortable, No apparent distress, Well Developed, Well Nourished Neck: full range of motion, supple Cardiovascular/Respiratory: regular rate, rhythm, no M/R/G, normal peripheral pulses, normal breath sounds, no respiratory distress Gastrointestinal/Abdominal: non tender, soft, no organomegaly, no pulsatile mass, other - No distention, guarding, rebound, CVA TTP Skin Exam: normal color, warm/dry Progress - Progress Progress: 09/20/19 12:18 I have explained and reviewed all results with the pt. I have reviewed previous urine culture results, pansensitive. Pt is on azo, discussed use. Another urine culture sent. I explained that emergent conditions may arise and to return to the ER for new, worsening, or any persistent conditions. I've explained the importance of f/u for recheck; reports follow up already scheduled. All questions and concerns addressed at this time. Pt understands and agrees with plan. Pt well appearing, NAD, is stable for discharge. Rebeka Estrada MD Emergency Medicine Physician Billing Number [id number] - Results/Orders Results/Orders: 09/20/19 10:45 URINE CULTURE W/COLONY COUNT Stat Laboratory Results - last 24 hr 09/20/19 09/20/19 10:45 10:45 Urine Color Yellow Urine Appearance Cloudy Urine pH 7.5 Ur Specific [place] 1.025 Urine Protein >=300 H Urine Glucose (UA) Negative Urine Ketones Negative Urine Blood Moderate H Urine Nitrite Positive H Urine Bilirubin Negative Urine Urobilinogen 0.2 Ur Leukocyte Esterase Large H Urine RBC >50 H Urine WBC Tntc H Ur Epithelial Cells 1-3 Amorphous Sediment 1+ Urine Bacteria 2+ H Urine HCG, Qual Negative Departure - Departure Clinical Impression: Acute cystitis Qualifiers: Hematuria presence: without hematuria Qualified Code(s): N30.00 - Acute cystitis without hematuria Time of Disposition: 12:17 Disposition: Discharge to Home or Self Care Health Concerns: condition: stable Departure Forms: ED Discharge - Pt. Copy, Patient Portal Self Enrollment Prescriptions: Levofloxacin [Levaquin] 750 mg PO DAILY 10 Days #10 tablet Home Medications: Ambulatory Orders Metformin HCl [Metformin Hydrochloride] 500 mg PO BID 06/10/19 Cephalexin Monohydrate [Keflex] 500 mg PO QID 7 Days #28 cap 08/24/19 Levofloxacin [Levaquin] 750 mg PO DAILY 10 Days #10 tablet 09/20/19 Additional Instructions: Follow up: [facility] As needed, if symptoms worsen Your Primary Care Physician Make appointment, two days, for follow up
[2019-09-20 12:32] VITALS: TEMP 97.4
[2019-09-20 12:34] VITALS: BP 119/81
== END 2019-09-20 12:30 | disposition home or self-care (01) ==
LOC: ER 10:21
DX: N30.00 Acute cystitis without hematuria (principal); R31.9 Hematuria, unspecified; E11.9 Type 2 diabetes mellitus without complications

== ENCOUNTER 2019-11-14 12:42 | Emergency (ER) | payer SELFPAY ==
[2019-11-14 13:00] VITALS: TEMP 98.4
--- NOTE | 2019-11-14 13:13 | ED.PDOC ---
History of Present Illness - General Chief Complaint: Problem Stated Complaint: burning with urination Time Seen by Provider: 11/14/19 13:04 Source: patient Exam Limitations: no limitations - History of Present Illness Initial Comments: UTI SX, 2D. DYSURIA, FREQUENCY, URGENCY. NO FLANK PAIN. NO NAUSEA. Timing/Duration: yesterday Quality: moderate Onset Location: suprapubic Radiation: none Improving Factors: nothing Worsening Factors: nothing Associated Symptoms: denies symptoms Allergies/Adverse Reactions: Allergies NO KNOWN ALLERGY Allergy (Verified 11/14/19 13:00) Home Medications: Ambulatory Orders Metformin HCl [Metformin Hydrochloride] 500 mg PO BID 06/10/19 Nitrofurantoin Monohydrate Mac [Macrobid] 100 mg PO BID 5 Days #10 capsule 11/14/19 Review of Systems - Review of Systems Constitutional: Denies: chills, fever EENTM: States: no symptoms reported Respiratory: States: no symptoms reported Cardiology: States: no symptoms reported Gastrointestinal/Abdominal: Denies: abdominal pain, nausea Genitourinary: States: dysuria, frequency. Denies: discharge Skin: Denies: lesions, rash Neurological: States: no symptoms reported Endocrine: Denies: unexplained weight gain, unexplained weight loss Hematologic/Lymphatic: Denies: easy bleeding, easy bruising All other Systems: Reviewed and Negative Past Medical History (General) - Patient Medical History Hx Seizures: No Hx Stroke: No Hx Dementia: No Hx Asthma: No Hx of COPD: No Hx Cardiac Disorders: No Hx Congestive Heart Failure: No Hx Pacemaker: No Hx Hypertension: No Hx Thyroid Disease: No Hx Diabetes: Yes - type II Hx Gastroesophageal Reflux: No Hx Renal Disease: Yes - Hx stents in kidneys Hx Cancer: No Hx of HIV: No Hx Hepatitis C: No Hx MRSA: No - Vaccination History Hx Tetanus, Diphtheria Vaccination: No Hx Influenza Vaccination: No Hx Pneumococcal Vaccination: No - Social History Hx Tobacco Use: No Hx Chewing Tobacco Use: No Hx Alcohol Use: No Hx Substance Use: Yes Hx Substance Use Treatment: No Hx Depression: No Hx Physical Abuse: No Hx Emotional Abuse: No - Female History Patient is a Female of Child Bearing Age (10 -59 yrs old): Yes Hx Last Menstrual Period: 07/21/17 Patient : No Expected Date of Delivery:: 05/27/14 Family Medical History - Family History Paternal Grandparents Hx Family Hypertension: Yes - paternal grandmother Hx Family Diabetes: Yes - paternal grandmother Paternal Hx Family;Other: Paternal aunts have high blood pressure and diabetes Sister Maternal Family History: Unknown Hx Family Cancer: Yes - Pt sister has cervical cancer Mother Family History: Unknown Living Status: Hx Family Cancer: Yes Hx Family;Other: Pt states mother had leukemia Physical Exam - Physical Exam General Appearance: Alert, No apparent distress Eyes, Ears, Nose, Throat Exam: PERRL/EOMI, normal ENT inspection Neck: full range of motion, normal inspection Cardiovascular/Respiratory: regular rate, rhythm, no M/R/G, normal breath sounds Gastrointestinal/Abdominal: normal bowel sounds, non tender - NO SUPRAPUBIC TENDERNESS., soft, no organomegaly, no pulsatile mass Rectal Exam: deferred Back Exam: no CVA tenderness Extremity: normal range of motion, normal inspection Neurologic: alert, normal mood/affect Skin Exam: normal color, warm/dry Lymphatic: no adenopathy Progress - Results/Orders Results/Orders: UTI, UNCOMPLICATED. UA = POS [place] EST, WBC, BACTERIA. NO PYELONEPHRITIS SX (NO FLANK PAIN, NO CVA TENDERNESS, AFEBRILE) THUS FURTHER W/U NOT INDICATED. PT HAD UTI IN September, APPROPRIATELY WITH LEVAQUIN 10 D. UR CX SHOWED MIXED LENNIE, THUS NO SENSITIVITIES WERE PERFORMED. TODAY WILL RX MACROBID 100 MG PO BID X 5 D. IST DOSE IN ER. SENDING FOR UR CX. Departure - Departure Clinical Impression: Acute cystitis Qualifiers: Hematuria presence: without hematuria Qualified Code(s): N30.00 - Acute cystitis without hematuria Disposition: Discharge to Home or Self Care Condition: Good Departure Forms: ED Discharge - Pt. Copy, Patient Portal Self Enrollment Instructions: Urinary Tract Infection, Adult (DC) Diet: resume usual diet Activity: increase activity as tolerated Prescriptions: Nitrofurantoin Monohydrate Mac [Macrobid] 100 mg PO BID 5 Days #10 capsule Home Medications: Ambulatory Orders Metformin HCl [Metformin Hydrochloride] 500 mg PO BID 06/10/19 Nitrofurantoin Monohydrate Mac [Macrobid] 100 mg PO BID 5 Days #10 capsule 11/14/19
[2019-11-14] MEDS ORDERED: NITROFURANTOIN MONOHYDRATE MAC 100 MG CAP PO ONE (13:19)
[2019-11-14 13:30] VITALS: BP 107/68; O2SAT 98
== END 2019-11-14 13:29 | disposition home or self-care (01) ==
LOC: ER 12:42
DX: N30.00 Acute cystitis without hematuria (principal); E11.9 Type 2 diabetes mellitus without complications; Z87.440 Personal history of urinary (tract) infections; Z79.84 Long term (current) use of oral hypoglycemic drugs

== ENCOUNTER 2019-12-04 04:16 | Emergency (ER) | payer SELFPAY ==
[2019-12-04 04:29] VITALS: BP 135/82; TEMP 96; O2SAT 99
[2019-12-04] MEDS ORDERED: CEPHALEXIN MONOHYDRATE 500 MG CAP PO ONE (04:43)
--- NOTE | 2019-12-04 04:46 | ED.PDOC ---
History of Present Illness - General Chief Complaint: Problem Stated Complaint: painful urination Time Seen by Provider: 12/04/19 04:40 Source: patient, RN notes reviewed, Vital Signs reviewed, old records Exam Limitations: no limitations - History of Present Illness Initial Comments: Pt presents with 3 day h/o burning with urination and urgency and frequency. Denies fever, chills, flank pain, NV. Has had UTI symptoms several times in the past. Previous cultures have shown contaminant and no sensitivities performed. LMP was 4 days ago. Allergies/Adverse Reactions: Allergies NO KNOWN ALLERGY Allergy (Verified 12/04/19 04:29) Home Medications: Ambulatory Orders Metformin HCl [Metformin Hydrochloride] 1,000 mg PO BID 06/10/19 Cephalexin Monohydrate [Keflex] 500 mg PO QID 10 Days #40 cap 12/04/19 Review of Systems - Review of Systems Constitutional: Denies: chills, fever Respiratory: Denies: cough, short of breath Cardiology: Denies: chest pain, palpitations, syncope Gastrointestinal/Abdominal: Denies: abdominal pain, nausea, vomiting Genitourinary: States: dysuria, frequency. Denies: discharge Musculoskeletal: Denies: back pain All other Systems: Reviewed and Negative Past Medical History (General) - Patient Medical History Hx Seizures: No Hx Stroke: No Hx Dementia: No Hx Asthma: No Hx of COPD: No Hx Cardiac Disorders: No Hx Congestive Heart Failure: No Hx Pacemaker: No Hx Hypertension: No Hx Thyroid Disease: No Hx Diabetes: Yes - type II Hx Gastroesophageal Reflux: No Hx Renal Disease: Yes - Hx stents in kidneys Hx Cancer: No Hx of HIV: No Hx Hepatitis C: No Hx MRSA: No - Vaccination History Hx Tetanus, Diphtheria Vaccination: No Hx Influenza Vaccination: No Hx Pneumococcal Vaccination: No - Social History Hx Tobacco Use: No Hx Chewing Tobacco Use: No Hx Alcohol Use: No Hx Substance Use: Yes Hx Substance Use Treatment: No Hx Depression: No Hx Physical Abuse: No Hx Emotional Abuse: No - Female History Hx Last Menstrual Period: 07/21/17 Patient : No Expected Date of Delivery:: 05/27/14 Family Medical History - Family History Paternal Grandparents Hx Family Hypertension: Yes - paternal grandmother Hx Family Diabetes: Yes - paternal grandmother Paternal Hx Family;Other: Paternal aunts have high blood pressure and diabetes Sister Maternal Family History: Unknown Hx Family Cancer: Yes - Pt sister has cervical cancer Mother Family History: Unknown Living Status: Hx Family Cancer: Yes Hx Family;Other: Pt states mother had leukemia Physical Exam - Physical Exam General Appearance: Alert, No apparent distress Neck: full range of motion, supple Cardiovascular/Respiratory: regular rate, rhythm, normal breath sounds, no respiratory distress Gastrointestinal/Abdominal: non tender, soft Back Exam: no CVA tenderness Progress - Progress Progress: 12/04/19 04:46 Pt has signs of UTI on UA. Treated with Macrobid 1 month ago for similar symptoms and symptoms resolved. No fever or flank pain. Pt is nontoxic appearing. Will treat with Keflex and f/u with urologist for further evaluation due to frequent UTI symptoms. SRP given. - Results/Orders Results/Orders: 12/04/19 04:25 URINE CULTURE W/COLONY COUNT Stat Laboratory Results - last 24 hr 12/04/19 04:25 Urine Color Yellow Urine Appearance Sl cloudy Urine pH 7.0 Ur Specific [place] 1.020 Urine Protein 100 H Urine Glucose (UA) Negative Urine Ketones Negative Urine Blood Moderate H Urine Nitrite Positive H Urine Bilirubin Negative Urine Urobilinogen 0.2 Ur Leukocyte Esterase Large H Urine RBC 10-20 H Urine WBC Tntc H Ur Epithelial Cells 10-20 Urine Bacteria 1+ Departure - Departure Clinical Impression: Urinary tract infection Qualifiers: Urinary tract infection type: acute cystitis Hematuria presence: without hematuria Qualified Code(s): N30.00 - Acute cystitis without hematuria Time of Disposition: 04:48 Disposition: Discharge to Home or Self Care Condition: Good Departure Forms: ED Discharge - Pt. Copy, Patient Portal Self Enrollment Instructions: Urinary Tract Infection, Adult (DC) Diet: resume usual diet Activity: increase activity as tolerated Prescriptions: Cephalexin Monohydrate [Keflex] 500 mg PO QID 10 Days #40 cap Home Medications: Ambulatory Orders Metformin HCl [Metformin Hydrochloride] 1,000 mg PO BID 06/10/19 Cephalexin Monohydrate [Keflex] 500 mg PO QID 10 Days #40 cap 12/04/19 Additional Instructions: You will need to follow up with a Urologist for further evaluation due to frequent UTI's.
== END 2019-12-04 04:58 | disposition home or self-care (01) ==
LOC: ER 04:16
DX: N30.00 Acute cystitis without hematuria (principal); E11.9 Type 2 diabetes mellitus without complications; Z79.84 Long term (current) use of oral hypoglycemic drugs

== ENCOUNTER 2020-01-06 13:17 | Emergency (ER) | payer SELFPAY ==
--- NOTE | 2020-01-06 14:04 | ED.PDOC ---
History of Present Illness - General Chief Complaint: Problem Time Seen by Provider: 01/06/20 13:41 Source: patient, RN notes reviewed, Vital Signs reviewed Exam Limitations: no limitations - History of Present Illness Initial Comments: This is a 39-year-old female with history of type 2 diabetes, on Metformin, presenting to the emergency department with 2 days of dysuria, urinary frequency similar to symptoms she had with UTI 1 month ago. She was treated with p.o. Keflex at that time, and states her symptoms went away. She denies any vaginal discharge or unusual vaginal bleeding. She denies any fever. She has not checked her blood sugar since onset. Allergies/Adverse Reactions: Allergies NO KNOWN ALLERGY Allergy (Verified 12/04/19 04:29) Home Medications: Ambulatory Orders Metformin HCl [Metformin Hydrochloride] 1,000 mg PO BID 06/10/19 Cephalexin Monohydrate [Keflex] 500 mg PO QID 10 Days #40 cap 12/04/19 Phenazopyridine HCl [Pyridium] 200 mg PO Q8H #6 tab 01/06/20 Sulfamethoxazole-Trimethoprim [Bactrim Ds 800-160 mg] 1 tab PO Q12HR #14 tab 01/06/20 Review of Systems - Review of Systems Constitutional: Denies: chills, fever EENTM: Denies: nose congestion, throat pain Respiratory: Denies: short of breath, wheezing Genitourinary: States: dysuria, frequency. Denies: discharge, pain Musculoskeletal: Denies: back pain, muscle pain, neck pain Past Medical History (General) - Patient Medical History Hx Seizures: No Hx Stroke: No Hx Dementia: No Hx Asthma: No Hx of COPD: No Hx Cardiac Disorders: No Hx Congestive Heart Failure: No Hx Pacemaker: No Hx Hypertension: No Hx Thyroid Disease: No Hx Diabetes: Yes - type II Hx Gastroesophageal Reflux: No Hx Renal Disease: Yes - Hx stents in kidneys Hx Cancer: No Hx of HIV: No Hx Hepatitis C: No Hx MRSA: No - Vaccination History Hx Tetanus, Diphtheria Vaccination: No Hx Influenza Vaccination: No Hx Pneumococcal Vaccination: No - Social History Hx Tobacco Use: No Hx Chewing Tobacco Use: No Hx Alcohol Use: No Hx Substance Use: Yes Hx Substance Use Treatment: No Hx Depression: No Hx Physical Abuse: No Hx Emotional Abuse: No - Female History Hx Last Menstrual Period: 07/21/17 Patient : No Expected Date of Delivery:: 05/27/14 Family Medical History - Family History Paternal Grandparents Hx Family Hypertension: Yes - paternal grandmother Hx Family Diabetes: Yes - paternal grandmother Paternal Hx Family;Other: Paternal aunts have high blood pressure and diabetes Sister Maternal Family History: Unknown Hx Family Cancer: Yes - Pt sister has cervical cancer Mother Family History: Unknown Living Status: Hx Family Cancer: Yes Hx Family;Other: Pt states mother had leukemia Physical Exam - Physical Exam General Appearance: Alert, Comfortable Cardiovascular/Respiratory: regular rate, rhythm, no M/R/G, normal peripheral pulses, no JVD, normal breath sounds, no respiratory distress Gastrointestinal/Abdominal: non tender, soft Back Exam: normal inspection, no CVA tenderness, no vertebral tenderness Neurologic: no motor/sensory deficits, alert, normal mood/affect, oriented x 3 Skin Exam: normal color, warm/dry Progress - Progress Progress: 01/06/20 14:05 Old records reviewed. Most recent ED visit on 12/04/2019, urine culture grew Enterococcus faecalis, catalase and beta lactamase negative. She was treated with Keflex - Results/Orders Results/Orders: 01/06/20 13:41 URINE CULTURE W/COLONY COUNT Stat URINALYSIS Stat 01/06/20 13:50 URINE CULTURE W/COLONY COUNT Stat Laboratory Results - last 24 hr 01/06/20 01/06/20 13:50 13:54 Urine Color Yellow Urine Appearance Cloudy H Urine pH 6.5 Ur Specific [place] 1.020 Urine Protein 300 H Urine Glucose (UA) Negative Urine Ketones Negative Urine Blood Moderate H Urine Nitrite Positive H Urine Bilirubin Negative Urine Urobilinogen 0.2 Ur Leukocyte Esterase Large H Urine RBC 1-3 Urine WBC 20-30 H Ur Epithelial Cells 20-30 Urine Bacteria 3+ H Urine HCG, Qual Negative Departure - Departure Clinical Impression: Acute cystitis Qualifiers: Hematuria presence: without hematuria Qualified Code(s): N30.00 - Acute cystitis without hematuria Disposition: Discharge to Home or Self Care Condition: Good Departure Forms: ED Discharge - Pt. Copy, Patient Portal Self Enrollment Diet: diabetic diet Prescriptions: Sulfamethoxazole-Trimethoprim [Bactrim Ds 800-160 mg] 1 tab PO Q12HR #14 tab Phenazopyridine HCl [Pyridium] 200 mg PO Q8H #6 tab Home Medications: Ambulatory Orders Metformin HCl [Metformin Hydrochloride] 1,000 mg PO BID 06/10/19 Cephalexin Monohydrate [Keflex] 500 mg PO QID 10 Days #40 cap 12/04/19 Phenazopyridine HCl [Pyridium] 200 mg PO Q8H #6 tab 01/06/20 Sulfamethoxazole-Trimethoprim [Bactrim Ds 800-160 mg] 1 tab PO Q12HR #14 tab 1
[2020-01-06 20:05] VITALS: O2SAT 99
[2020-01-06 20:10] VITALS: BP 137/69; TEMP 97.9
== END 2020-01-06 15:00 | disposition home or self-care (01) ==
LOC: ER 13:17
DX: N30.00 Acute cystitis without hematuria (principal); E11.9 Type 2 diabetes mellitus without complications; Z79.84 Long term (current) use of oral hypoglycemic drugs; Z79.899 Other long term (current) drug therapy

== ENCOUNTER 2020-02-28 10:53 | Emergency (ER) | payer SELFPAY ==
--- NOTE | 2020-02-28 11:07 | ED.PDOC ---
History of Present Illness - General Chief Complaint: Trauma Time Seen by Provider: 02/28/20 11:07 Source: patient Exam Limitations: no limitations - History of Present Illness Initial Comments: PATIENT PRESENTS C/O DYSURIA AND URGENCY X 3 DAYS, DENIES F/C/ N/V. PATIENT HAS HX OF PRIOR UTI. Onset Location: suprapubic Radiation: none Activites at Onset: none Worsening Factors: nothing Associated Symptoms: denies symptoms Allergies/Adverse Reactions: Allergies NO KNOWN ALLERGY Allergy (Verified 03/03/20 13:36) Home Medications: Ambulatory Orders Metformin HCl [Metformin Hydrochloride] 500 mg PO BID 06/10/19 Ciprofloxacin [Cipro] 500 mg PO BID #6 tab 02/28/20 Phenazopyridine HCl [Pyridium] 200 mg PO BID #6 tab 02/28/20 Amoxicillin & Pot Clavulanate [Augmentin Tab] 875 mg PO BID #20 tab 03/03/20 Metronidazole 500 mg PO TID #30 tab 03/03/20 Review of Systems - Review of Systems Constitutional: States: no symptoms reported Respiratory: States: no symptoms reported Cardiology: States: no symptoms reported Gastrointestinal/Abdominal: States: no symptoms reported Skin: States: no symptoms reported Neurological: States: no symptoms reported Endocrine: States: no symptoms reported Past Medical History (General) - Patient Medical History Hx Seizures: No Hx Stroke: No Hx Dementia: No Hx Asthma: No Hx of COPD: No Hx Cardiac Disorders: No Hx Congestive Heart Failure: No Hx Pacemaker: No Hx Hypertension: No Hx Thyroid Disease: No Hx Diabetes: Yes - type II Hx Gastroesophageal Reflux: No Hx Renal Disease: Yes - Hx stents in kidneys Hx Cancer: No Hx of HIV: No Hx Hepatitis C: No Hx MRSA: No - Vaccination History Hx Tetanus, Diphtheria Vaccination: No Hx Influenza Vaccination: No Hx Pneumococcal Vaccination: No - Social History Hx Tobacco Use: No Hx Chewing Tobacco Use: No Hx Alcohol Use: No Hx Substance Use: Yes Hx Substance Use Treatment: No Hx Depression: No Hx Physical Abuse: No Hx Emotional Abuse: No - Female History Hx Last Menstrual Period: 07/21/17 Patient : No Expected Date of Delivery:: 05/27/14 Family Medical History - Family History Paternal Grandparents Hx Family Hypertension: Yes - paternal grandmother Hx Family Diabetes: Yes - paternal grandmother Paternal Hx Family;Other: Paternal aunts have high blood pressure and diabetes Sister Maternal Family History: Unknown Hx Family Cancer: Yes - Pt sister has cervical cancer Mother Family History: Unknown Living Status: Hx Family Cancer: Yes Hx Family;Other: Pt states mother had leukemia Physical Exam - Physical Exam General Appearance: Alert, Comfortable, No apparent distress Cardiovascular/Respiratory: regular rate, rhythm, no M/R/G, normal peripheral pulses, normal breath sounds Gastrointestinal/Abdominal: normal bowel sounds, non tender, soft Extremity: normal range of motion, non-tender, normal inspection Skin Exam: normal color, warm/dry, cyanosis Departure - Departure Clinical Impression: Cystitis Time of Disposition: 11:49 Disposition: Discharge to Home or Self Care Departure Forms: ED Discharge - Pt. Copy, Patient Portal Self Enrollment Instructions: DI for Trauma, Urinary Tract Infections in Adults Prescriptions: Ciprofloxacin [Cipro] 500 mg PO BID #6 tab Phenazopyridine HCl [Pyridium] 200 mg PO BID #6 tab Home Medications: Ambulatory Orders Metformin HCl [Metformin Hydrochloride] 500 mg PO BID 06/10/19 Ciprofloxacin [Cipro] 500 mg PO BID #6 tab 02/28/20 Phenazopyridine HCl [Pyridium] 200 mg PO BID #6 tab 02/28/20 Amoxicillin & Pot Clavulanate [Augmentin Tab] 875 mg PO BID #20 tab 03/03/20 Metronidazole 500 mg PO TID #30 tab 03/03/20
[2020-02-28 12:00] VITALS: BP 140/83; TEMP 97.5; O2SAT 99
== END 2020-02-28 12:00 | disposition home or self-care (01) ==
LOC: ER 10:53
DX: N30.90 Cystitis, unspecified without hematuria (principal); E11.9 Type 2 diabetes mellitus without complications; N18.9 Chronic kidney disease, unspecified; Z96.0 Presence of urogenital implants; Z79.84 Long term (current) use of oral hypoglycemic drugs; Z79.899 Other long term (current) drug therapy

== ENCOUNTER 2020-03-03 13:16 | Emergency (ER) | payer SELFPAY ==
[2020-03-03] MEDS ORDERED: FLUCONAZOLE 100 MG TAB PO ONE (13:39)
[2020-03-03] MEDS ORDERED: cefTRIAXone SODIUM 1 GM VIAL IM ONE (13:39)
[2020-03-03] MEDS ORDERED: LIDOCAINE 1% 2 ML VIAL INJ ONE (13:42)
--- NOTE | 2020-03-03 13:59 | ED.PDOC ---
History of Present Illness - General Chief Complaint: Problem Stated Complaint: Hesitency, frequency, burning with urination Time Seen by Provider: 03/03/20 13:18 Source: patient Exam Limitations: no limitations - History of Present Illness Initial Comments: The patient is a 39-year-old female presented emergency room secondary to persistent symptoms of dysuria and frequency. Looking back in her history since 2012 she has had multiple urinalyses consistent with infection. She is a diabetic which does increase her risk. No fever no flank pain. No difficulty with voiding. The patient has had urological procedures in the past. No swelling. The patient was seen fairly recently and placed on ciprofloxacin for urinary tract infection. Urine has failed to grow out any definitive pathology. Earlier in the year she did grow out Enterococcus coccus faecalis. Symptoms apparently did start to trav but then resumed after discontinuation of the oral antibiotic. Timing/Duration: constant, other - 10 days Severity: moderate Improving Factors: nothing Worsening Factors: nothing Associated Symptoms: denies symptoms Allergies/Adverse Reactions: Allergies NO KNOWN ALLERGY Allergy (Verified 03/03/20 13:36) Home Medications: Ambulatory Orders Metformin HCl [Metformin Hydrochloride] 500 mg PO BID 06/10/19 Ciprofloxacin [Cipro] 500 mg PO BID #6 tab 02/28/20 Phenazopyridine HCl [Pyridium] 200 mg PO BID #6 tab 02/28/20 Amoxicillin & Pot Clavulanate [Augmentin Tab] 875 mg PO BID #20 tab 03/03/20 Metronidazole 500 mg PO TID #30 tab 03/03/20 Review of Systems - Review of Systems Constitutional: States: no symptoms reported EENTM: States: no symptoms reported Respiratory: States: no symptoms reported Cardiology: States: no symptoms reported Gastrointestinal/Abdominal: States: no symptoms reported Genitourinary: States: see HPI, dysuria, frequency, pain. Denies: discharge, hematuria Musculoskeletal: States: no symptoms reported Skin: States: no symptoms reported Neurological: States: no symptoms reported Endocrine: States: no symptoms reported All other Systems: No Change from Baseline Past Medical History (General) - Patient Medical History Hx Seizures: No Hx Stroke: No Hx Dementia: No Hx Asthma: No Hx of COPD: No Hx Cardiac Disorders: No Hx Congestive Heart Failure: No Hx Pacemaker: No Hx Hypertension: No Hx Thyroid Disease: No Hx Diabetes: Yes Hx Gastroesophageal Reflux: No Hx Renal Disease: Yes - Hx stents in kidneys Hx Cancer: No Hx of HIV: No Hx Hepatitis C: No Hx MRSA: No Surgical History: no surgical history - Vaccination History Hx Tetanus, Diphtheria Vaccination: No Hx Influenza Vaccination: No Hx Pneumococcal Vaccination: No - Social History Hx Tobacco Use: Yes Hx Chewing Tobacco Use: No Hx Alcohol Use: Yes Hx Substance Use: No Hx Substance Use Treatment: No Hx Depression: No Hx Physical Abuse: No Hx Emotional Abuse: No - Female History Patient is a Female of Child Bearing Age (10 -59 yrs old): Yes Hx Last Menstrual Period: 07/21/17 Patient : No - Denies Expected Date of Delivery:: 05/27/14 Family Medical History - Family History Paternal Grandparents Hx Family Hypertension: Yes - paternal grandmother Hx Family Diabetes: Yes - paternal grandmother Paternal Hx Family;Other: Paternal aunts have high blood pressure and diabetes Sister Maternal Family History: Unknown Hx Family Cancer: Yes - Pt sister has cervical cancer Mother Family History: Unknown Living Status: Hx Family Cancer: Yes Hx Family;Other: Pt states mother had leukemia Physical Exam - Physical Exam General Appearance: Alert, Comfortable, No apparent distress Eye Exam: bilateral normal Ears, Nose, Throat: hearing grossly normal Respiratory: no respiratory distress, no accessory muscle use Cardiovascular/Chest: normal peripheral pulses, no edema Peripheral Pulses: radial,right: 2+, radial,left: 2+ Gastrointestinal/Abdominal: non tender, soft Back Exam: no CVA tenderness Extremity: normal range of motion, no pedal edema, normal capillary refill Neurologic: mirror silverer II-XII nml as tested, alert, normal mood/affect, oriented x 3 Skin Exam: normal color Comments: Vital Signs - 24 hr 03/03/20 03/03/20 13:17 13:23 Temperature 97.6 F Pulse Rate [ 96 H 96 H Pulse ox] Respiratory 16 16 Rate Blood Pressure 150/95 [L arm] O2 Sat by Pulse 99 Oximetry Progress - Progress Progress: 03/03/20 14:00 The patient is a 39-year-old [place] female presented to emergency room secondary to persistent symptoms of urinary tract infection. The patient does have a history of multiple frequent infections in the past. She was recently on ciprofloxacin but it appears to have not adequately cleared the process. Culture failed to grow out any specific pathology. The patient is receiving a dose of Rocephin and Diflucan here. She is going to be placed on 10 days of oral Augmentin and oral metronidazole in an attempt to clear the urine. I do want her to follow back up with her primary care doctor in 10 days to 2 weeks for a repeat urinalysis. If the infection is not clearing then additional imaging, likely in the form of ultrasound would be recommended for this patient due to the chronic recurrent nature of the problem. Urology evaluation may also be warranted. She does need to keep her self well-hydrated. She can also take [id number] Pepcid or Prilosec if the antibiotics are upsetting her stomach. She does need to avoid alcohol intake and she does need to take the medications with food. As he is a diabetic, she does need to control her blood sugars. There is no evidence of glucose spillage or ketosis in the urine today. ER warnings are given for any significant worsening. The patient does appear to be doing well clinically. hector jeanie [id number] 03/03/20 14:02 - Results/Orders Results/Orders: Laboratory Tests 03/03/20 13:23 Urine Color Yellow Urine Appearance Sl cloudy Urine pH 6.5 Ur Specific [place] 1.015 Urine Protein Negative Urine Glucose (UA) Negative Urine Ketones Negative Urine Blood Moderate H Urine Nitrite Positive H Urine Bilirubin Negative Urine Urobilinogen 0.2 Ur Leukocyte Esterase Large H Urine RBC 10-20 H Urine WBC >50 H Ur Epithelial Cells 10-20 Urine Bacteria 1+ Urine Mucus Small Departure - Departure Clinical Impression: Cystitis Disposition: Discharge to Home or Self Care Condition: Fair Departure Forms: ED Discharge - Pt. Copy, Patient Portal Self Enrollment Instructions: Acute Cystitis (DC) Diet: diabetic diet Activity: increase activity as tolerated Prescriptions: Amoxicillin & Pot Clavulanate [Augmentin Tab] 875 mg PO BID #20 tab Metronidazole 500 mg PO TID #30 tab Home Medications: Ambulatory Orders Metformin HCl [Metformin Hydrochloride] 500 mg PO BID 06/10/19 Ciprofloxacin [Cipro] 500 mg PO BID #6 tab 02/28/20 Phenazopyridine HCl [Pyridium] 200 mg PO BID #6 tab 02/28/20 Amoxicillin & Pot Clavulanate [Augmentin Tab] 875 mg PO BID #20 tab 03/03/20 Metronidazole 500 mg PO TID #30 tab 03/03/20 Additional Instructions: The patient is a 39-year-old [place] female presented to emergency room secondary to persistent symptoms of urinary tract infection. The patient does have a history of multiple frequent infections in the past. She was recently on ciprofloxacin but it appears to have not adequately cleared the process. Culture failed to grow out any specific pathology. The patient is receiving a dose of Rocephin and Diflucan here. She is going to be placed on 10 days of oral Augmentin and oral metronidazole in an attempt to clear the urine. I do want her to follow back up with her primary care doctor in 10 days to 2 weeks for a repeat urinalysis. If the infection is not clearing then additional imaging, likely in the form of ultrasound would be recommended for this patient due to the chronic recurrent nature of the problem. Urology evaluation may also be warranted. She does need to keep her self well-hydrated. She can also take [id number] Pepcid or Prilosec if the antibiotics are upsetting her stomach. She does need to avoid alcohol intake and she does need to take the medications with food. As he is a diabetic, she does need to control her blood sugars. There is no evidence of glucose spillage or ketosis in the urine today. ER warnings are given for any significant worsening. The patient does appear to be doing well clinically.
[2020-03-03 14:04] VITALS: O2SAT 98
[2020-03-03 14:12] VITALS: BP 133/90; TEMP 98.2
== END 2020-03-03 14:11 | disposition home or self-care (01) ==
LOC: ER 13:16
DX: N30.90 Cystitis, unspecified without hematuria (principal); E11.9 Type 2 diabetes mellitus without complications; Z87.440 Personal history of urinary (tract) infections; Z79.84 Long term (current) use of oral hypoglycemic drugs; Z79.899 Other long term (current) drug therapy; Z87.891 Personal history of nicotine dependence
CPT/HCPCS: 81001; 87086; J0696